=== PATIENT | female | born 1935 | race Caucasian/White ===

== ENCOUNTER 2025-02-12 02:00 | Emergency (ER) | payer OTHER ==
[2025-02-12 02:14] VITALS: BMI 25.8
[2025-02-12 06:40] VITALS: TEMP 98.2
[2025-02-12 11:41] VITALS: BP 155/59; PULSE 73; RESP 20
== END 2025-02-12 12:56 | disposition home or self-care (01) ==
LOC: FER 02:00
DX: M25.552 Pain in left hip (principal); W19.XXXA Unspecified fall, initial encounter
CPT/HCPCS: 70450-TC; 72125-TC; 72170-TC-FY; 73502-TC-LT-FY; 99284-25

== ENCOUNTER 2025-03-18 10:10 | Emergency (ER) | payer OTHER ==
[2025-03-18 10:35] VITALS: BMI 28.4
[2025-03-18 11:02] LABS: ABSOLUTE IMMATURE GRANULOCYTES 0.01 x10^3/uL (0.0-0.031); BASOPHILS # 0.03 x10^3/uL (0.01-0.08); EOSINOPHIL % 1.5 % (0.7-5.8); EOSINOPHILS # 0.11 x10^3/uL (0.04-0.36); MCHC 32.3 g/dl (32.2-35.5); MEAN CELL VOLUME 92.6 fl (79.4-94.8); MEAN PLT VOLUME 11.8 fl (9.4-12.3); MONOCYTE # 0.45 x10^3/uL (0.24-0.86); MONOCYTE % 6.3 % (4.7-12.5); RDW 16.7 % (12.5-17.0)
[2025-03-18 11:03] LABS: INR 1.01 (0.83-1.09); PROTHROMBIN TIME (PATIENT) 11.2 SEC (9.7-13.0)
[2025-03-18 11:06] LABS: ACTIVATED PTT 29.5 SECONDS (25.2-36.5)
[2025-03-18 11:11] LABS: ALK PHOS 74.0 U/L (45-117); CO2 25.0 mmol/L (21-32); CREATININE 0.9 mg/dl (0.6-1.3); GLUCOSE,RANDOM 89.0 mg/dl (74-106); SGOT/AST 17.0 U/L (15-37); SGPT/ALT 10.0 U/L (7-52); TOT PROT 6.6 g/dl (6.4-8.2)
[2025-03-18] MEDS ORDERED: LORazepam 2 MG/ML SDV VIAL ONE (11:42)
[2025-03-18] MEDS ORDERED: amLODIPine BESYLATE 5 MG TABLET (FP) ONE (11:43)
[2025-03-18] MEDS: amLODIPine BESYLATE 2.5 MG TABLET (FP) PO ONE (11:55)
[2025-03-18 13:16] VITALS: BP 144/70; PULSE 54; RESP 16; TEMP 98.1
[2025-03-18 13:44] LABS: HCV DIAGNOSTIC IN-HOUSE W/RFLX NON-REACTIVE (NONREACTIVE)
[2025-03-18 13:46] LABS: HIV INTERPRETATION NEGATIVE (NEGATIVE)
== END 2025-03-18 14:05 | disposition home or self-care (01) ==
LOC: FER 10:10
PROC: 3E033GC Introduction of Other Therapeutic Substance into Peripheral Vein, Percutaneous Approach (ICD-10-PCS; principal; 2025-03-18)
DX: S80.12XA Contusion of left lower leg, initial encounter (principal); M25.512 Pain in left shoulder; R41.82 Altered mental status, unspecified; W19.XXXA Unspecified fall, initial encounter
CPT/HCPCS: 36415; 70450-TC; 71045-TC-FY; 72125-TC; 72170-TC-FY; 73110-TC-RT-FY; 73502-TC-LT-FY; 80053; 81003; 82550; 83735; 84484; 85025; 85610; 85730; 86803; 87086; 87389; 93005; 99285-25